=== PATIENT | female | born 1970 ===

== ENCOUNTER 2017-08-07 09:42 | Day surgery (SDC) | payer OTHER, BC ==
[2017-08-06 09:39] VITALS: BMI 29.9
[~2017-08-07 09:42] MED LIST: Bupivacaine HCl 0.5% PF (10 ml) Inj ONE; EPINEPHrine 1 mg/ml (1:1000) Inj ONE; ceFAZolin IV 1 gm in Dextrose 2 GM/100 ML BAG IVPB ONE
[2017-08-07] MEDS ORDERED: Midazolam 2 MG/2 ML VIAL ONE (10:54)
[2017-08-07] MEDS ORDERED: Succinylcholine Chloride 20 mg/ml Syr (5 ml) IV ONE (10:54)
[2017-08-07] MEDS ORDERED: Propofol 10 mg/ml Inj (20 ML) ONE (10:54)
[2017-08-07] MEDS ORDERED: Rocuronium 10 mg/ml (10 ml) ONE (10:54)
[2017-08-07] MEDS ORDERED: Lactated Ringer's 1,000 ML IV ONE ×2 (10:55→12:00)
[2017-08-07] MEDS ORDERED: Dexamethasone 4 mg/1 ml IVP PRN (11:30)
[2017-08-07] MEDS: HYDROmorphone 0.5 mg/0.5 ml ISec IVP PRN ×3 (13:07→13:35)
[2017-08-07] MEDS ORDERED: Bupivacaine HCl 0.5% PF (10 ml) Inj ONE ×2 (14:02)
[2017-08-07] MEDS ORDERED: Lidocaine 2% Inj (20ml) ONE (14:02)
--- NOTE | 2017-08-07 14:32 | PCM.ANESB3 ---
Femoral Nerve Block - Femoral Nerve Block Date of Procedure: 08/07/17 Anesthesiologist: ladan Pre-Procedure Diagnosis: s/p right knee meniscus repair Post-Procedure Diagnosis: same Procedure Performed: Femoral Nerve Block Right - Procedure Femoral Nerve Block: The procedure was explained to the patient that it is for the post-operative pain management. Consent was obtained after a thorough discussion with the patient regarding the benefits and possible complications of local anesthetic block of the femoral nerve at the inguinal crease area. The patient was brought to the operating room and standard monitors were applied. Time-out was held with the circulating nurse to confirm the correct surgery and the appropriate block. After applying oxygen by nasal cannula and administering IV Sedation, patient was placed in supine position with fully extended lower extremities and the _right groin exposed. The femoral artery was then carefully palpated. The ultrasound transducer was then applied to this area in the transverse plane and the femoral nerve was visualized lateral to the femoral artery and underneath the fascia iliaca. After thorough identification, the inguinal crease area was prepped with Betadine solution three times and 1 % Lidocaine was injected subcutaneously for topical anesthesia. At this point, a #22 gauge Stimuplex 2-inch needle was inserted immediately lateral to the femoral artery pulse at the inguinal crease and advanced perpendicularly. The needle was inserted to the ultrasound transducer in-plane towards the femoral nerve in a [id number] direction. Needle advancement was performed carefully under direct ultrasound visualization. Nerve stimulator was used and twitch of the quadriceps muscle was obtained at current of __0.4___ MA. After negative aspiration, __5___cc of __0.5___% __Bupivacaine ____was injected and this was followed with __15____ cc of ___0.5____ % ___ Bupivacaine . Under ultrasound guidance the local anesthetics were observed spreading below fascia iliaca and around the femoral nerve. The needle was removed intact and sterile dressing was applied. The patient had stable vital signs, was conscious and in no apparent distress. The patient tolerated the femoral nerve block well with stable vital signs and was prepared for subsequent surgery.
[2017-08-07 15:44] VITALS: BP 90/60; RESP 18; TEMP 97; O2SAT 100
[2017-08-07 16:08] VITALS: PULSE 70
--- NOTE | 2017-08-12 23:14 | PCM.SURG1 ---
Surgeon's Initial Post Op Note - Surgeon's Notes Surgeon: Duane Rich MD Access Nurse: Belia Ward PA-C Type of Anesthesia: General Endo, [facility] Pre-Operative Diagnosis: Right knee: #1 medial meniscal tear. #2 synovitis. # 3 chondromalacia/ chondral injury Operative Findings: Right knee: #1 medial meniscus tear (complex anterior horn tear not repairable/ complex peripheral red-red zone posterior horn repairable tear). #2 lateral meniscus tear (peripheral posterior horn red-red zone menisco -capsular seperation w/ hypermobility, repairable). #3 chondral injury trochlea (full thickness defect measuring [id number]). #4 symptomatic medial plica band. #5 synovitis. #6 hypertrophic inflamed fat pad Post-Operative Diagnosis: Right knee: #1 medial meniscus tear (complex anterior horn tear not repairable/ complex peripheral red-red zone posterior horn repairable tear). #2 lateral meniscus tear (peripheral posterior horn red- red zone menisco-capsular seperation w/ hypermobility, repairable). #3 chondral injury trochlea (full thickness defect measuring [id number]). #4 symptomatic medial plica band. #5 synovitis. #6 hypertrophic inflamed fat pad Operation Performed: Right knee arthroscopic: #1 all-inside lateral mensical repair. #2 partial medial menisectomy w/ comcominant stabilization posterior horn. #3 microfracture trochlea cartilage defect. #4 extensive synovectomy ( including debridement symptomatic medial plica band, debridement hypertorphic fat pad, extensive synovectomy in all 3 compartments). #5 PRP injection intra- articular Specimen/Specimens Removed: specimen= none. tourniquet time= 0 min. complications= none. implants= Linvatec meniscal repair system, 10 implants for the lateral meniscal repair, 8 implants for the medial meniscus stabilization Estimated Blood Loss: EBL {In ML}: 3 Blood Products Given: N/A Drains Used: No Drains Post-Op Condition: Good Date of Surgery/Procedure: 08/07/17 Time of Surgery/Procedure: 14:00
--- NOTE | 2017-08-17 05:27 | OP ---
PROCEDURE DATE: 08/07/2017 PREOPERATIVE DIAGNOSES: Right knee: 1. Medial meniscal tear. 2. Synovitis. 3. Chondromalacia/chondral injury. POSTOPERATIVE DIAGNOSES: Right knee: 1. Medial meniscal tear (complex anterior horn tear, not repairable/complex peripheral red-red zone posterior horn repairable tear). 2. Lateral meniscal tear (peripheral posterior horn red-red zone meniscal capsular separation with hypermobility, repairable). 3. 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 4. Symptomatic medial plica band. 5. Inflammatory synovitis. 6. Hypertrophic inflamed fat pad. PROCEDURE: 1. Right knee arthroscopic. 2. All-inside lateral meniscal repair. 3. Partial medial meniscectomy with concomitant stabilization of posterior horn. 4. Microfracture trochlear cartilage defect. 5. Extensive synovectomy (including debridement of symptomatic medial plica band, debridement of hypertrophic fat pad, extensive synovectomy in all three compartments). 5. Intraarticular PRP injection. SURGEON: Duane Rich MD PAPER GLUING OPERATOR: Belia Ward PA-C. JUSTIFICATION FOR PAPER GLUING OPERATOR: Belia Ward is a certified physician maintenance assistant, whose skilled surgical service was an absolute necessity for successful completion of the procedure as he provided skilled surgical assistance with positioning of patient, positioning of extremity, management of surgical gramajo, retraction of neurovascular structures, management of arthroscopic equipment, facilitating lateral meniscus all-inside repair, facilitating partial medial meniscectomy and stabilization of medial meniscus done arthroscopically, microfracture of trochlea, extensive synovectomy and debridement of fat pad and medial plica band, PRP injection, wound closure, fitting and placement and postop hinged knee brace. Belia Ward was present for the entire case and was an absolute necessity for successful completion of the procedure. TYPE OF ANESTHESIA: General endotracheal anesthesia with a postop regional nerve block placed by Anesthesia staff in PACU. SPECIMENS: None. TOURNIQUET TIME: 0 minutes. COMPLICATIONS: None. ESTIMATED BLOOD LOSS: 3 mL. DRAINS: None. DISPOSITION: The patient was extubated and transferred to PACU in stable condition, having tolerated the procedure well. IMPLANTS: Linvatec meniscal repair system, with 10 implants for all-inside lateral meniscal repair, 8 implants for medial meniscus stabilization after partial medial meniscectomy. INDICATIONS FOR SURGERY: The patient is a 46-year-old female with no significant past medical history, who presented to the office for the first time under my care on 06/25/2017 with right knee pain since 02/07/2017. This is a workers' comp case with an injury at work to the right knee on 02/07/2017. 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 She developed immediate 10/10 pain localized to the right knee, most prominent at the medial joint line. She had difficulty with ambulation and weightbearing. She had multiple episodes of giving way and almost falling as well as consistent clicking and catching of the right knee. She was referred for an MRI of the right knee done at [facility] on 07/06/2017, which was read as; 1. Horizontal tear within the posterior horn and body of the medial meniscus. 2. Grade 1 sprains of the ACL and MCL. 3. Minimal tricompartmental articular chondrosis including within the medial femoral condyle, posterior nonweightbearing aspect of the lateral femoral condyle and patella. On my review of the MRI, indeed there was a posterior horn medial meniscal tear with some signal change in the anterior horn, there was also signal change in the posterior horn of the lateral meniscus. Her physical examination was consistent for medial and lateral meniscal tears with positive medial and lateral Tamiko's with no evidence of instability. She underwent a cortisone mixture injection in the office on 06/25/2017, resulting in near-complete resolution of her pain immediately in the office. She was also placed in a Neoprene hinged knee brace for support. She was able to return to work in the interim. On her followup in the office two weeks later after obtaining the MRI, she stated that her pain was significantly reduced and improved for a period of one week and she was happy with her progress, but the pain gradually returned and she is now back to her baseline level of 8/10 pain localized to the right knee. After reviewing the MRI with her and taking in mind the amount of time that had passed since the injury with no improvement, she was indicated for arthroscopic surgery. On 07/09/2017, to help with her pain locally, she did undergo a second cortisone mixture injection in the office at her request to help with her pain. That also alleviated her pain temporarily. On her final preoperative followup, her pain had returned to baseline level of 8/10 pain again. She was indicated for right knee arthroscopic medial meniscal repair versus partial meniscectomy, lateral meniscus repair versus partial lateral meniscectomy, extensive synovectomy, chondroplasty versus microfracture, and all related indicated arthroscopic procedures including PRP injection. The risks, benefits, and alternatives of the procedure were discussed at length with the patient, with the risks including but not limited to infection, neurovascular damage, need for further surgery, development of chronic pain and disability, development of blood clots including DVT and PE, failure of repair, chondrolysis and accelerated degenerative wear, anesthesia reactions including . After answering all of her questions, she stated that she understood the risks and wished to proceed with surgery. She was referred to her primary care physician for preoperative medical evaluation and clearance as well as preadmission testing. Procedure was scheduled at [facility] after authorization was obtained from workers' comp. PROCEDURE IN DETAIL: The patient was identified in the preoperative holding area and the right knee was marked for surgery. Once again as described above, the risks, benefits and alternatives of the procedure were discussed at length with the patient and informed consent was obtained. After a brief discussion with the Anesthesia staff, perioperative IV antibiotics in the form of 2 gm Ancef were administered and the patient was taken to the operating room and placed on a well-padded operating room table with all bony prominences and superficial neurovascular structures well padded. An initial time-out was done with the surgeon, Anesthesia staff, OR staff, and all were in agreement with the patient, procedure being done, and extremity being operated on. General anesthesia was administered without any difficulty or complication. Examination under anesthesia was then carried out. EXAMINATION UNDER ANESTHESIA: Right knee with no swelling, no warmth, no erythema, skin intact, full range of motion compared to contralateral knee with consistent crepitance localized to the medial joint line representing the meniscus tear clicking in and out. No evidence of instability with negative anterior drawer, mutual external rotation and internal rotation, negative posterior drawer, negative David, negative reverse David, negative pivot shift, negative reverse pivot shift, negative posterior lateral corner drawer test, negative dial test, negative opening to medial or lateral joint lines at 0 or 30 degrees varus or valgus stress, patella with normal tracking, no evidence of instability, there was a reproducible click representing a symptomatic medial plica band at the inferior medial aspect of the patella throughout range of motion engaging consistently at 30 degrees flexion. CONTINUATION OF PROCEDURE: A tourniquet was placed high on the right thigh, but never inflated. The right lower extremity was prepped and draped in standard sterile fashion. A final time-out was done with the surgeon, Anesthesia staff, OR staff, all in agreement with the patient, procedure being done and extremity being operated on. The knee was insufflated with 50 mL of normal saline. Anterior lateral portal was created with stab incision through the skin, down the subcutaneous tissue, down to the level of the capsule. Blunt arthroscopic trocar and cannula were inserted through the portal into the suprapatellar pouch. The arthroscopic camera was inserted and insufflation with arthroscopic fluid was begun. With the use of spinal needle localization, optimal position for anterior medial portal was selected and stab incision was made through the skin, down to subcutaneous tissue, down to the level of capsule. An accessory cannula was inserted and the knee joint was copiously irrigated for better visualization and removal of debris. With the use of an arthroscopic probe, a diagnostic arthroscopy was then carried out. DIAGNOSTIC ARTHROSCOPY: Attention was first turned towards the suprapatellar pouch, where there was no evidence of adhesions or loose bodies, attention was then turned towards the patellofemoral joint where immediately seen midpoint at the trochlea measuring approximately 2 mm of width and 6 mm in length was a full-thickness cartilage injury down to subchondral bone. This appeared to be traumatic in nature, most likely from a direct impact. The patella was well seated in the trochlea with no evidence of instability and the patella cartilage and the surface did not exhibit any chondral injury. At the inferior medial aspect of the patella extending to the medial retinaculum, was a thick and hypertrophic inflamed symptomatic plica band. Attention was then turned towards the medial gutter, where again seen was the thickened medial plica band. Attention was then turned towards the medial compartment and after careful evaluation with the arthroscopic probe, the medial meniscus exhibited a complex anterior horn tear that did not appear to be amenable to repair. At the posterior horn of the medial meniscus, there was significant hypermobility as a peripheral red-red zone meniscal capsular separation tear. Attention was then turned towards the medial femoral condyle and medial tibial plateau that exhibited intact cartilage with no evidence of injury. Attention was then turned towards the intercondylar notch where intact ACL and PCL were seen. Attention was then turned towards the lateral compartment where intact lateral femoral condyle and lateral tibial plateau cartilage were seen. The lateral tibial plateau cartilage exhibited mild grade 1 chondromalacia throughout with some fibrillation, but no full thickness defect seen. Lateral meniscus after careful evaluation exhibited a complex tear at the posterior horn of the lateral meniscus as well as significant hypermobility and peripheral meniscal capsular separation of the entire posterior horn and lateral meniscus. All along the anterior aspect of the knee joint, along all three compartments was a hypertrophic inflamed synovial lining that appeared to be symptomatic as well as a hypertrophic fat pad that appeared to cause impingement. EXTENSIVE SYNOVECTOMY: All along the anterior aspect of the knee joint and along all three compartments was a hypertrophic inflamed synovial lining that was definitely symptomatic. With the use of the arthroscopic shaver and radiofrequency ablation, an extensive synovectomy was carried out while maintaining good hemostasis, debriding the synovial lining down to good non-inflamed tissue. Attention was then turned towards the hypertrophic fat pad that was causing impingement with significant inflamed and hypertrophic tissue at the infrapatellar fat pad. With the use of arthroscopic shaver and radiofrequency ablation, this was debrided, while maintaining good hemostasis. The symptomatic medial plica band was then resected with the use of arthroscopic shaver and radiofrequency ablation while maintaining good hemostasis as well. Once the extensive synovectomy was carried out to satisfaction, attention was then towards the lateral compartment. ALL-INSIDE LATERAL MENISCUS REPAIR: The lateral meniscus was carefully evaluated and with the use of the probe, it was found to have significant hypermobility as a meniscal capsular separation of the posterior horn. At the posterior lateral corner of the posterior horn, there was a complex tear of the posterior horn as well. With the use of the arthroscopic shaver and radiofrequency ablation, the complex tearing was smoothed out and all unstable meniscal fragments were removed. At that point in time, the decision was made to proceed with an all-inside lateral meniscus arthroscopic repair. With the use of the Linvatec meniscal repair system, 4 implants were placed just anterior to the popliteal hiatus stabilizing and reducing the posterior horn of the lateral meniscus to the posterior lateral corner of the capsule. Four implants were used with good capsular-sided fixation with alternating horizontal and vertical mattress sutures placed. This was repeated with placement of 4 more implants posterior to the popliteal hiatus stabilizing the posterior horn to the posterior capsule with the same technique. We then repeated the steps with placement of 2 implants anterior to the popliteal hiatus at the inferior surface of the lateral meniscus to restore the hoop stressors of the lateral meniscus with good stabilization achieved. The lateral meniscus repair was tested and found to be stable with jewish of normal biomechanical motion and resolution of the hypermobility. With the use of arthroscopic shaver and radiofrequency ablation, a chondroplasty of the lateral tibial plateau cartilage was carried out removing the fibrillated cartilage as well. Attention was then turned towards the medial compartment. ARTHROSCOPIC PARTIAL MEDIAL MENISCECTOMY AND STABILIZATION OF MEDIAL MENISCUS: With the use of the arthroscopic shaver and radiofrequency ablation, a partial medial meniscectomy was carried out of the complex anterior horn tear of the medial meniscus. A smooth contour was established while minimizing the amount of meniscal tissue removed from the medial meniscus. All in all, approximately less than 5 to 10% of the medial meniscal tissue was removed with good joint preservation technique maintained. The posterior horn exhibited a meniscal capsular separation with hypermobility of the posterior horn with ability to sublux the posterior horn beyond the mid point of the medial femoral condyle. With the use of the Linvatec All-Inside Meniscal Repair System, 4 implants were placed at the inferior aspect of the posterior horn with good capsular-sided fixation with alternating horizontal and vertical mattress sutures placed, resulting in good stability and reduction of the posterior horn and medial meniscus to the posterior medial capsule. The steps were then repeated at the superior aspect of the posterior horn and the posterior medial capsule with good stability achieved. With the use of the arthroscopic probe, this was tested and found to be very stable. With the use of the arthroscopic meniscal biters, the partial medial meniscectomy of the anterior horn was completed to satisfaction and good smooth contour was maintained. ARTHROSCOPIC MICROFRACTURE OF TROCHLEA: The full-thickness acute zone of cartilage injury of the trochlea measured 2 mm in diameter and 6 mm in length and was situated at the central aspect of the trochlea. The surrounding cartilage was intact. With the use of arthroscopic curette, a rim of stable cartilage was established and all the unstable overlying cartilage over this full-thickness zone of injury was removed. With the use of the microfracture awl and the powerpick, 3 microfracture holes were placed within the full-thickness zone of injury. This was a successful microfracture with good fat return from the holes. Once the microfracture was successfully completed, final arthroscopic images were taken of the all-inside lateral meniscus repair, the partial medial meniscectomy and concomitant stabilization of the posterior horn of the medial meniscus, microfracture of the trochlear defect, and the extensive synovectomy. All arthroscopic fluid and debris were then removed from the knee joint. PRP INJECTION: With the help of Anesthesia staff, 7 mL of PRP were obtained after a peripheral venous stick was drawn by Anesthesia staff and the kit was then used to spin the blood in the ArthFippex centrifuge. The resulting 7 mL of PRP was and injected under direct visualization arthroscopically intraarticular at the end of the procedure. Arthroscopic camera was then removed and the arthroscopic portals were then reapproximated with 2-0 Vicryl suture for subcutaneous tissue, followed by 3-0 Monocryl suture for skin. Sterile dressings were applied, followed by a layer of sterile cast padding from the toes up to the superior thigh, followed by a layer of compressive Kermit wrap from the toes up to the superior thigh. The knee was then fitted and placed in a postop hinged knee brace, locked in 0 degree extension. RATIONALE FOR CODING AND BILLIN. All-inside medial meniscal repair was conducted successfully and therefore, billed and coded. 2. A partial medial meniscectomy was carried out as the majority of the treatment to the medial meniscus and therefore, partial medial meniscectomy was coded and billed, the stabilization of the posterior horn was secondary to good joint preservation technique, but the partial medial meniscectomy was the majority of the medial meniscus treatment. 3. An arthroscopic microfracture to the full-thickness cartilage injury of the trochlea was conducted and therefore, coded and billed. 4. An extensive synovectomy was carried out including debridement and resection of hypertrophic infrapatellar fat pad causing impingement, resection of the plica band medially, extensive synovectomy in all three compartments of hypertrophic synovial that was inflamed. This was beyond the usual and customary synovectomy for better visualization during arthroscopic surgery and required extended surgical time, and therefore was coded and billed as extensive synovectomy. 5. Chondroplasty of the lateral tibial plateau was carried out, but being that there were other arthroscopic procedures done in the lateral compartment, the chondroplasty was inclusive to the lateral meniscus repair and the extensive synovectomy that are both being billed. Therefore, this was not coded and billed as part of the procedure, but was conducted. 6. PRP injection was placed intra-articularly with the help of Anesthesia staff and therefore, was coded and billed. The PRP injection was done at the conclusion of the surgery under direct arthroscopic visualization. 7. Postop hinged knee brace was fitted and placed for the patient provided by my office. The brace was of medical necessity to protect the lateral meniscus repair and the medial meniscus stabilization to maximize the chances of successful outcome after surgery. The brace was fitted and placed on the patient prior to extubation and was of absolute medical necessity. DISPOSITION: The patient was extubated and transferred to PACU in stable condition, having tolerated the procedure well. She will be discharged home once she has recovered from anesthesia. She is instructed to be weightbearing as tolerated to the right lower extremity as long as the postop hinged knee brace is locked in extension. The brace and the dressings are to be on and clean, dry, and intact at all times. She was given a prescription for Percocet for pain control. She has been given a prescription for Lovenox for DVT prophylaxis, which she will start on postoperative day #1 and inject subcutaneously once daily for 2 weeks. She will contact me directly with any questions or concerns. She will follow up in the office for her first postoperative visit within one week and already has her postoperative appointment set up. Duane Rich MD
== END 2017-08-07 17:21 | disposition home or self-care (01) ==
LOC: C.SDS 09:42
PROVIDERS: ATTEND Student in an Organized Health Care Education/Training Program
DX: S83.231D Complex tear of medial meniscus, current injury, right knee, subsequent encounter (principal); M94.261 Chondromalacia, right knee; M67.861 Other specified disorders of synovium, right knee; M65.9 Synovitis and tenosynovitis, unspecified
CPT/HCPCS: 29876; 29881; C1751; J0690; J1170; J2001; J2250; J2405; J2704; J3010; J7120

== ENCOUNTER 2018-08-13 06:02 | Day surgery (SDC) | payer OTHER, BC ==
[2018-08-11 09:48] VITALS: BMI 30.9
[2018-08-13] MEDS ORDERED: EPINEPHrine- 1.5 MG in Sodium Chloride 0.9% Irrig 3,000 ML IR ONE (07:45)
[2018-08-13] MEDS ORDERED: Midazolam 2 MG/2 ML VIAL ONE (07:45)
[2018-08-13] MEDS ORDERED: Propofol 10 mg/ml Inj (20 ML) ONE (07:45)
[2018-08-13] MEDS ORDERED: ceFAZolin 1 gm in NS 2 GM/200 ML BAG IVPB ONE (07:57)
[2018-08-13] MEDS ORDERED: Lidocaine Hydrochloride 5 ML INJ ONE ×2 (08:02→13:26)
[2018-08-13] MEDS ORDERED: Succinylcholine Chloride 20 mg/ml Syr (5 ml) IV ONE (08:02)
[2018-08-13] MEDS ORDERED: Rocuronium 10 mg/ml (5 ml) ONE (08:02)
[2018-08-13] MEDS ORDERED: EPINEPHrine- 1.5 MG in Sodium Chloride 0.9% Irrig 3,000 ML IV ONE (08:15)
[2018-08-13] MEDS ORDERED: Neostigmine 1:1000 (1 mg/ml) Inj ONE (09:09)
[2018-08-13] MEDS ORDERED: Lactated Ringer's 1,000 ML IV ONE (11:16)
[2018-08-13] MEDS: HYDROmorphone 0.5 mg/0.5 ml ISec IVP PRN ×4 (11:25→13:25)
[2018-08-13] MEDS ORDERED: Lactated Ringer's 1,000 ML IV SCH (11:30)
[2018-08-13] MEDS ORDERED: Ropivacaine 0.5% PF (20 ml) inj INJ ONE (13:18)
--- NOTE | 2018-08-13 13:58 | PCM.ANESB7 ---
Adductor Canal Block - Adductor Canal Block Date of Procedure: 08/13/18 Anesthiologist: Gerald Pre-Procedure Diagnosis: right knee meniscus repair Post-Procedure Diagnosis: right knee meniscus repair Procedure Performed: Adductor Canal Block Right - Procedure Adductor Canal Block: The procedure was explained to the patient that it is for the post-operative pain management. Consent was obtained after a thorough discussion with the patient regarding the benefits and possible complications of local anesthetic adductor canal block of the femoral nerve. Standard monitors, as defined by the ASA, were applied to the patient. Time-out was held with the circulating nurse to confirm the appropriate block. After applying supplemental oxygen and administering IV Sedation as needed, the patient was placed in supine position with and the operative leg was flexed slightly at the knee and externally rotated as needed, and was kept anatomically stable. The mid-thigh of the __right lower extremity was exposed. The ultrasound transducer was then applied transversely along the medial aspect, about midway down the thigh and the femoral artery and vein were identified in appropriate relation with the sartorius muscle. At this time, the femoral nerve was visualized lateral to the femoral artery within the canal. After thorough identification, this area area was prepped with Chloroprep solution three times and 1 % Lidocaine was injected subcutaneously for topical anesthesia. At this point, a #22 gauge Stimuplex 4-inch needle was inserted in-plane in a [id number] orientation, and advanced toward the femoral nerve. Advancement was performed carefully under direct ultrasound visualization. Nerve stimulator was used and appropriate muscle twitch was obtained at current of __0.5___MA. After negative aspiration, __5___cc of __0.5___% ___Ropivacaine was injected and this was followed with ___15___ cc of __0.5 % ___Ropivacaine . Under ultrasound guidance the local anesthetics were observed spreading around the femoral nerve. The needle was removed intact and sterile dressing was applied. The patient had stable vital signs, was conscious and in no apparent distress. The patient tolerated the femoral nerve block well with stable vital signs and was prepared for subsequent surgery
[2018-08-13 14:51] VITALS: BP 110/70; RESP 18; TEMP 97; O2SAT 100
[2018-08-13 16:57] VITALS: PULSE 63
--- NOTE | 2018-08-14 00:55 | PCM.SURG1 ---
Surgeon's Initial Post Op Note - Surgeon's Notes Surgeon: Duaen Rich MD [employer]: Belia Ward PA-C Type of Anesthesia: General Endo, [facility] Pre-Operative Diagnosis: RIGHT knee: #1 recurrent, acute/reinjury medial meniscal tear. #2 partial ACL tear (grade 2-3). 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 #4 MCL partial tear. #5 synovitis. #6 status post arthroscopic all inside lateral meniscal repair, partial medial meniscectomy with concomitant stabilization posterior horn/repair, microfracture trochlear Central chondral defect, extensive synovectomy (including debridement of symptomatic medial plica bands, debridement of hypertrophic fat pad causing anterior impingement, extensive synovectomy all 3 compartments), intra-articular PRP injection at [facility] on 08/07/17 Operative Findings: RIGHT knee: 1- recurrent, acute/reinjury medial meniscal tear (2 zones of injury = #1 posterior horn intrasubstance complex tearing multidirectional with central defect and poor quality meniscal tissue extending to superior and inferior articular surface, not repairable, #2 anterior horn complex superior surface tearing, not repairable). 2- recurrent/acute injury- lateral meniscal tear (2 zones of injury = #1 complex free edge tearing starting at posterior mid body extending to posterior horn, white-white zone, not rep airable, #2 posterior horn large peripheral red-red zone tear/meniscal capsular separation starting just anterior to popliteal hiatus and extending anterior to the junction with mid body, repairable). partial healing from previous lateral meniscal repair posterior horn with evidence of subsequent secondary injury/recurrent injury. 3- partial ACL tear (With complete avulsion anterior medial bundle from proximal attachment at lateral femoral condyle, good-quality remnant campo ACL tissue, amenable to primary repair, resulting grade 2-3 instability overall, testing for isolated AM bundle shows grade 3 instability = anterior receiving and processing supervisor neutral/external rotation without endpoint, anterior drawer test in internal rotation 2+ with firm endpoint, isolated testing of PL bundle shows grade 1-[address] bundle is intact). 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 5- MCL partial tear (grade 1-2 instability, firm endpoint). 6- foreign body present (suture from previous meniscal repair at posterior horn lateral meniscus and posterior horn medial meniscus). 7- adhesions/scar tissue most prominent at suprapatellar pouch, but also present at medial and lateral gutter, bands of scar tissue extending from patella to retinaculum medially and laterally similar to plica. 8- hypertrophy and inflammation anterior fat pad (causing anterior and patellofemoral impingement). 9-articular cartilage overgrowth stemming from medial aspect of lateral femoral condyle extending into intercondylar notch (possible reactive response to trauma versus overgrowth from previous microfracture). 10- s/p arthroscopic all inside lateral meniscal repair, partial medial meniscectomy with concomitant stabilization posterior horn/repair, microfracture trochlear Central chondral defect, extensive synovectomy (including debridement of symptomatic medial plica bands, debridement of hypertrophic fat pad causing anterior impingement, extensive synovectomy all 3 compartments), intra-articular PRP injection at [facility] on 08/07/[address] Rich Post-Operative Diagnosis: RIGHT knee: 1- recurrent, acute/reinjury medial meniscal tear (2 zones of injury = #1 posterior horn intrasubstance complex tearing multidirectional with central defect and poor quality meniscal tissue extending to superior and inferior articular surface, not repairable, #2 anterior horn complex superior surface tearing, not repairable). 2- recurrent/acute injury-lateral meniscal tear (2 zones of injury = #1 complex free edge tearing starting at posterior mid body extending to posterior horn, white-white zone, not repairable, #2 posterior horn large peripheral red-red zone tear/meniscal capsular separation starting just anterior to popliteal hiatus and extending anterior to the junction with mid body, repairable). partial healing from previous lateral meniscal repair posterior horn with evidence of subsequent secondary injury/recurrent injury. 3- partial ACL tear (With complete avulsion anterior medial bundle from proximal attachment at lateral femoral condyle, good-quality remnant campo ACL tissue, amenable to primary repair, resulting grade 2-3 instability overall, testing for isolated AM bundle shows grade 3 instability = anterior receiving and processing supervisor neutral/external rotation without endpoint, anterior drawer test in internal rotation 2+ with firm endpoint, isolated testing of PL bundle shows grade 1-[address] bundle is intact). 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 5- MCL partial tear (grade 1-2 instability, firm endpoint). 6- foreign body present (suture from previous meniscal repair at posterior horn l ateral meniscus and posterior horn medial meniscus). 7- adhesions/scar tissue most prominent at suprapatellar pouch, but also present at medial and lateral gutter, bands of scar tissue extending from patella to retinaculum medially and laterally similar to plica. 8- hypertrophy and inflammation anterior fat pad (causing anterior and patellofemoral impingement). 9-articular cartilage overgrowth stemming from medial aspect of lateral femoral condyle articular surface extending into intercondylar notch (possible reactive response to trauma versus overgrowth from previous microfracture). 10- s/p arthroscopic all inside lateral meniscal repair, partial medial meniscectomy with concomitant stabilization posterior horn/repair, microfracture trochlear Central chondral defect, extensive synovectomy (including debridement of symptomatic medial plica bands, debridement of hypertrophic fat pad causing anterior impingement, extensive synovectomy all 3 compartments), intra-articular PRP injection at [facility] on 08/07/[address] Rich Operation Performed: RIGHT knee arthroscopic: #1 primary ACL repair (anterior- medial bundle). #2 lateral meniscus repair. #3 partial medial meniscectomy. #4 chondroplasty MFC and medial tibial plateau chondromalacia. 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 #6 chondroplasty and debridement LFC articular cartilage overgrowth. #7 removal of foreign bodies (suture from previous lateral and medial meniscal repairs done 08/07/17). #8 extensive synovectomy (including lysis of adhesions suprapatellar pouch, resection plica bands/scar tissue medial and lateral, resection and debridement of hypertrophic/inflamed anterior fat pad, synovectomy all 3 compartments). #9 evaluation of MCL partial tear. #10 evaluation of LCL partial tear. #11 intra-articular PRP injection Specimen/Specimens Removed: specimen = foreign bodies/suture from previous medial and lateral meniscal repairs, LFC chondral overgrowth sent to pathology. Tourniquet time = 0 min. Complications = none. implants =. #1 [facility]: Sequent all inside meniscal repair system, 8 implants used for LMR (2 kits open). #2 Arthrex: 4.75 mm bio composite swivel lock anchor x1, FiberWire suture (combination of 2. 0 suture #2 cinch FiberWire suture used), for ACL repair Estimated Blood Loss: EBL {In ML}: 3 Blood Products Given: N/A Drains Used: No Drains Post-Op Condition: Good Date of Surgery/Procedure: 08/13/18 Time of Surgery/Procedure: 11:00
--- NOTE | 2018-08-15 01:35 | OP ---
PROCEDURE DATE: 08/13/2018 PREOPERATIVE DIAGNOSES: Right knee, 1. Recurrent, acute/re-injury medial meniscal tear. 2. Partial anterior cruciate ligament tear (grade 2 to 3). 3. Chondromalacia (history of full-thickness chondral defect of the central trochlea, status post microfracture, 08/07/2017. 4. Medial collateral ligament partial tear. 5. Synovitis. 6. Status post arthroscopic all-inside medial meniscal repair, partial medial meniscectomy with concomitant stabilization, posterior horn/repair, microfracture central trochlear full thickness chondral defect, extensive synovectomy including debridement of symptomatic medial plica bands, debridement of hypertrophic fat pad causing anterior impingement, extensive synovectomy in all three compartments, intraarticular PRP injection at [facility] on 08/07/2017. POSTOPERATIVE DIAGNOSES: Right knee, 1. Recurrent, acute/re-injury medial meniscal tear (two zones of injury = Posterior horn intrasubstance complex tearing multidirectional with central defect and poor quality meniscal tissue extending to superior and inferior articular surface, not repairable. Anterior horn complex superior surface tearing, nonrepairable). 2. Recurrent/acute injury lateral meniscal tear (two zones of injury = complex free edge tearing starting at posterior mid body extending to posterior horn, white-white zone not repairable; posterior horn large peripheral red-red zone tear/meniscocapsular separation staring just anterior to the popliteal hiatus and extending anterior to the junction of posterior horn with mid body, repairable), partial healing from previous lateral meniscal repair posterior horn with evidence of subsequent secondary injury/recurrent injury. 3. Partial anterior cruciate ligament tear (complete avulsion anterior medial bundle from proximal attachment at lateral femoral condyle, good quality remnant in either anterior cruciate ligament tissue amenable to primary repair, resulting in grade 2 to 3 instability overall, testing for isolated anterior medial bundle shows grade 3 instability = anterior extension service specialist in charge neural/external rotation without implant, anterior drawer internal rotation with 2+ grade instability with a firm implant, isolated testing of the posterior lateral bundle showed grade 1 to 2 instability as the posterior lateral bundle is intact). 4. Chondromalacia trochlea (history of full-thickness chondral defect at central trochlear, status post microfracture, 08/07/2017, trochlear defect healed with good fibrocartilage formation and some overgrowth), medial femoral condyle and medial tibial plateau (focal areas of grade 2 to 3 chondromalacia with no full-thickness chondral defect seen). 5. Medial collateral ligament partial tear (grade 1 to 2 instability with a firm endpoint). 6. Foreign body present (sutured from previous meniscal repair at posterior horn lateral meniscus and posterior horn medial meniscus). 7. Adhesions/scar tissue, most prominent at suprapatellar pouch, but also present in medial and lateral gutters as bands of scar tissues extending from patellar to medial and lateral retinaculum, similar to plica bands. 8. Hypertrophy and inflammation anterior fat pad, causing anterior and patellofemoral impingement. 9. Articular cartilage overgrowth extending from medial aspect of lateral femoral condyle, articular surface, extending into intercondylar notch (possible reactive response to trauma versus overgrowth from previous microfracture). 10. Status post arthroscopic All-inside lateral meniscal repair, partial medial meniscectomy with concomitant stabilization posterior horn/repair, microfracture trochlear central chondral defect, extensive synovectomy (including the debridement of symptomatic medial plica band, debridement of hypertrophic fat pad causing anterior impingement, extensive synovectomy in all three compartments), intraarticular PRP injections at [facility] on 08/07/[address] Rich. PROCEDURES: Right knee arthroscopic, 1. Primary anterior cruciate ligament repair (anterior and medial bundle repair). 2. Lateral meniscus repair. 3. Partial medial meniscectomy. 4. Chondroplasty medial femoral condyle and medial tibial plateau. 5. Chondroplasty trochlear fibrocartilage overgrowth, status post arthroscopic microfracture, 08/07/2017. 6. Chondroplasty and debridement lateral femoral condyle articular cartilage overgrowth. 7. Removal of foreign bodies (suture from previous lateral and medial meniscal repairs done on 08/07/2017). 8. Extensive synovectomy (including lysis of adhesions, suprapatellar pouch, resection of plica bands or scar tissue from medial and lateral gutters and retinaculum, resection and debridement of hypertrophic/inflamed anterior fat pads, synovectomy in all three compartments). 9. Evaluation of medial collateral ligament partial tear under anesthesia. 10. Evaluation of lateral collateral ligament partial tear under anesthesia. 11. Intraarticular PRP injection. SPECIMEN: Foreign bodies/suture from previous medial and lateral meniscal repairs, lateral femoral condyle chondral overgrowth sent to pathology. TOURNIQUET TIME: Zero minutes. COMPLICATIONS: None. DRAINS: None. IMPLANTS: 1. Linvatec: Sequent All-Inside Meniscal Repair System, 8 implants used for lateral meniscus repair (two kits open). 2. Arthrex: 4.75 mm BioComposite SwiveLock anchor x1, FiberWire suture (combination of #2 FiberWire suture and #2 cinch FiberWire suture used) for ACL repair. ESTIMATED BLOOD LOSS: 3 mL. DISPOSITION: The patient was extubated and transferred to PACU in stable condition, having tolerated the procedure well. INDICATIONS FOR SURGERY: The patient is a 48-year-old female with no significant past medical history who has been under my care since 06/25/2017 with right knee pain and dysfunction since 02/07/2017. This is a workmen's comp case with an injury at work to the right knee with date of injury, 02/07/2017. Prior to this date of injury on 02/07/2017, this patient denies having any right knee issue, and there was no evidence of chronic injury or pathology. 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 She developed immediate 10/10 pain localized to the right knee, most prominent at the medial joint line. She had difficulty with ambulation and weightbearing. She had multiple episodes of giving away and almost falling as well as consistent clicking and catching localized to the right knee. Finally, her workmen's comp case was opened, and after there was no significant improvement with rest and observation, she presented to my office for the first time on 06/25/2017. Her physical examination was consistent for medial and lateral meniscal tears with positive medial and lateral Tamiko with no significant evidence of instability at that point in time. She also had significant quad atrophy already compared to contralateral knee. We started her treatment with conservative treatment in the form of cortisone mixture injection in the office on 06/25/2017 which resulted in near complete resolution of her pain immediately in the office. She was stabilized and placed in a Neoprene hinged knee brace for support and preliminary conservative treatment for her injury. She was referred to start physical therapy and antiinflammatory medical and cream. She was referred for an MRI of the right knee done at [facility] on 07/06/2017, which was read as, 1. Horizontal tear within the posterior horn and body of the medial meniscus. 2. Grade 1 sprains of ACL and MCL. 3. Minimal tricompartmental articular chondrosis. On my review of the MRI, indeed there was a posterior horn medial meniscal tear with some signal change in the anterior horn, there was also significant signal change within the posterior horn of the lateral meniscus in the periphery. She followed up 2 weeks later and the pain had returned back to baseline level of pain and dysfunction with difficulty performing ADLs and a significant negative impact on her quality of life on 07/09/2017. She underwent her second cortisone mixture injection on 07/09/2017 after we reviewed the MRI and confirmed that there was no intraarticular mechanical problem that would warrant urgent surgery and that we would try conservative treatment again. The injection did provide her with near complete resolution of pain, the second time around that only lasted one week again. The pain returned to baseline level of pain and dysfunction, and after speaking to the patient on the phone, we agreed that she was indicated for a right knee arthroscopic surgery including arthroscopic medial meniscal repair versus partial meniscectomy, possible lateral meniscus repair versus possible lateral meniscectomy, extensive synovectomy, chondroplasty versus microfracture, and all related indicated arthroscopic procedures. We obtained authorization from the workmen's comp career at [facility], and she underwent the procedure on 08/07/2017 at [facility] with no complications, and she tolerated the procedure well. She was recovering over the next few weeks, compliant with all postop recommendations including physical therapy 4 to 5 times a week, postop hinged knee brace used, locked at 0 degree extension at all times when ambulating, focusing on regaining range of motion with home exercise program as well as physical therapy, DVT prophylaxis and minimizing pain medication. Approximately 4 weeks after surgery about 08/07/2017, the patient reports that she fell down a flight of stairs in her building approximately 15 steps in total. She fell down the entire flight. She landed on her right knee with this resulting in return to baseline level of 9/10 right knee pain localized to the medial joint line and proximal medial plateau as well as the patella. She stated that she was wearing the postop hinged knee brace, locked at 0-degree extension when this happened, and was very thankful that the injury was not worse. Initial evaluation in the office on 09/22/2017, the knee was very swollen and indeed there was ecchymosis. She was referred for a stat MRI of the right knee to rule out stress fracture, and she was instructed to hold physical therapy for a week and be strict manual weightbearing to the right lower extremity with the brace on at all times. The MRI was done at [facility] on 07/25/2017 which was read as, 1. Superficial bone contusion, anterior aspect of patella without fracture. No extensor mechanism tear. 2. Grade 2 sprain of ACL and MCL, increased since previous study. 3. No evidence for a medial meniscal repair. 4. Soft tissue swelling and edema throughout the knee with a mild to moderate joint effusion. This MRI was done as a regular MRI without arthrogram. We continued with conservative treatment, and she did return to physical therapy regaining strength and range of motion. The contusion/low-grade stress injury was to the patella, so therefore, she was able to fully weight bear as tolerated. On 09/29/2017, to help facilitate decreasing her pain without causing further injury or decreased hearing to the meniscus repair that has been done just 2 months earlier, we did an aspiration of the knee without injection; 30 mL of bloody fluid were aspirated successfully and it did provide her with some pain relief and improved range of motion. She continued to have significant pain although it did modestly improve. Over the course of the next 9 months, she underwent cortisone mixture injection under my care on 10/27/2017, 12/01/2017, and 03/23/2018, as well as 05/03/2018. She had also been referred to pain management, Dr. Eldon Salas, who did a regional genicular nerve block in 10/2017 and repeated it again in the next few months around 01/2018. With the degree of pain that she was in, localized to the right knee despite the patella healing, we began to question the possibility of a lumbar spine contribution/radiculopathy as she did report lower back pain that radiated to the right lower extremity as well. She was referred for an MRI of the lumbar spine done at [facility] on 04/07/2018 which was read as, 1. L1-L2 through L3-L4, no focal disk herniation, significant central canal or neuroforaminal stenosis. 2. L4-L5 disk bulge causing mild central stenosis. No focal herniation. Bulge and facet hypertrophy, mild to moderate bilateral foraminal stenosis. 3. L5-S1 disk bulge without focal herniation. Bulge and facet hypertrophy, mild bilateral foraminal stenosis. After reviewing the lumbar spine MRI with her, she was referred back to painting department supervisor, Dr. Eldon Salas, who did perform lumbar spine injection, and she did report some improvement, although only about 20% to 30% after the lumbar spine injection with Dr. Salas. By 04/2018, it became clear that despite best efforts with compliance and obtaining a custom medial offloaded brace as well as working diligently with physical therapy and home exercise program, she just was not able to overcome the secondary injury from the fall, and had significant localized right knee pain that significantly improved with local cortisone injections performed on the dates described above, that would last only 2 to 3 weeks at the most and return back to baseline level of pain and dysfunction after that point. She became very frustrated and the thought of having another surgery was overwhelming. Throughout the postop course, she was not able to return to work as her job as a surgical training specialist requires her to return to work full duty with no restrictions, and she would not be allowed to wear to a custom ACL brace. We did attempt return to work, and unfortunately, with the movement of the train and her position of standing while conducting the train, it was nearly impossible for her to do safely. Finally, on 05/03/2018 visit, Mr. Loving agreed to undergo an MR arthrogram which would provide better detail in the setting of a knee MRI after arthroscopic surgery. The MR arthrogram was done at [facility] on 06/07/2018 that was read as, 1. Complex tear posterior horn and body of lateral meniscus. 2. Re-demonstration of grade 2 sprains of ACL and of the MCL. 3. Grade 1 sprain, fibular collateral ligament. 4. Mild to moderate tricompartmental articular chondrosis, most pronounced in the patella. On my review of the MRI, there was definitely, significant signal change localized to the posterior horn of the medial meniscus with what appeared to be a defect at the posterior horn with the intraarticular contrast filling the defect clearly on the MRI. This was concerning as based off of the interpretation of the MRI, it does not appear repairable. The lateral meniscus exhibited signal change at the posterior horn as well in the same zone of injury witnessed during arthroscopy on 08/07/2017 just anterior to the popliteal hiatus with visible scaring and potential partial healing of the lateral meniscus at the very least. Focusing on the trochlear lesion from 08/07/2017 that underwent the microfracture, the trochlear chondral defect was not visible on MRI, making it likely that the microfracture was successful in filling of the defect. The ACL exhibited significant signal change throughout its course with what appeared to be attenuated fibers. The anterior medial bundle had a more pronounced injury with what appeared to be a complete avulsion from the proximal insertion at the lateral femoral condyle as the contrast from the MR arthrogram can be seen entering and going between the proximal aspect of the anterior medial bundle and the wall of the lateral femoral condyle where normally the insertion would be intact. The posterior lateral bundle exhibited intact fibers throughout its course with some signal change and attenuation but more importantly the proximal attachment was intact at the insertion and appeared to be adherent to the lateral femoral condyle. On her followup visit on 06/10/2018, we reviewed the MRI findings at length and discussed our treatment options. At this point in time, the ACL anterior medial fiber partial tear appeared to have good quality tissue, that in my opinion was a good candidate for an ACL primary repair done arthroscopically. As stated before, she could not return to work with a brace on and did not want to change her job position, and wanted to her continue her passion of being a surgical training specialist, and therefore, she was indicated for surgery. She was indicated for right knee arthroscopy, evaluation of ACL tear and possible primary repair ACL, medial meniscal repair versus partial medial meniscectomy, lateral meniscal repair versus partial lateral meniscectomy, evaluation of chondral injury, and resulting fibrocartilage development from microfracture done 08/07/2017, extensive synovectomy, evaluation of MCL and LCL under anesthesia, and all related indicated arthroscopic procedures as well as chondroplasty/microfracture if indicated. We discussed our treatment plan at length and Ms. Loving was given all of our options to treat the ACL partial tear. If the fibers indeed appear to be intact and the instability was more of attenuation and stretching out of anterior medial bundle, then the primary repair would be carried out with the intention of tightening of the fibers, and reattaching them to the lateral femoral condyle at the [place] insertion point. If the anterior medial bundle was completely detached as we would expect, a primary repair would be carried out as long as there was good quality remnant [place] tissue present. If the quality of the anterior medial bundle tear tissue was very poor, we discussed potentially performing an ACL reconstruction with allograft which Ms. Loving did not want to do unless it was 100% the only solution. We discussed other options such was internal bracing and single bundle reconstruction which finally she had agreed to if it indeed was indicated but all efforts would be made to confirm a primary ACL repair as it would have the quickest recovery for her with her intention of returning to work as soon as possible. We then discussed the most likely treatment for the medial meniscus, with most likely at this point be a partial medial meniscectomy with the large posterior horn tissue defect, but all attempts would be made at joint preservation and repairing the meniscal tissue as much as possible. We reviewed surgical animation videos and diagnosis animation videos as well as the MRI at length and her previous surgery images, and she stated that she had a good understanding of the procedure proposed to her as well as the diagnosis. The risks, benefits and alternatives of the procedure were discussed at length with the patient with the risks including, but not limited to infection, neurovascular damage, need for further surgery, failure of repair, chondrolysis, iatrogenic injury, loss of function, development of chronic pain and disability, development of blood clots including DVT and PE, anesthesia reactions including , stiffness, need for further surgery. After answering all of her questions, she stated that she understood the risk and wished to proceed with surgery. Physical therapy was set up to start immediately postop at a minimum of 4 days per week. She was referred to a primary care doctor for preadmission testing and preoperative medical evaluation and clearance which was obtained successfully without any issues. Arrangements were made with painting department supervisor, Dr. Salas, to help start her treatment postoperatively and provide us with the option of a region nerve block if on evaluation, her pain was not well controlled. We also discussed how we would be more cautious postoperatively to avoid another fall and agreement was made to take all precautions as necessary, indeed a walker, as well as get physical assistance from her or family whenever going up and down the stairs and to work with physical therapy on crutch ambulation going up and down stairs preop. I also believe that her recovery at this time around is going to be a little bit easier for her as this time, she is not as deconditioned as she was prior to the first surgery. She has done a great job, working with physical therapy and regaining her quad strength and general core strength overall, I believe that she is in a better place overall physically when compared to the first surgery and that she is mentally ready and knows what to expect, and I believe, she will have a better outcome at this time around. I believe that again, causality is established between the injury at work on 02/07/2017, and her right knee presentation initially which then led to a second injury while going down the stairs on approximately resulting in recurrent injury and indication for another surgery, nearly 9 months later. The reason that we awaited such a long time was two fold. First half, Ms. Loving was very committed to conservative treatments and was making great progress with physical therapy and pain management, it was when she plateaued and it became evident that no further significant improvement in her presentation was occurring that we repeated the MRIs and MR arthrogram and indicated her for the second surgery. [employer] Work[employer] provided us with the approval, and surgery was scheduled on 08/13/2018 at [facility]. PROCEDURE IN DETAIL: Once the operative report is loaded into [employer], I will edit the report and add the procedure details as well as disposition. Duane Rich MD
== END 2018-08-13 17:12 | disposition home or self-care (01) ==
LOC: C.SDS 06:02
PROVIDERS: ATTEND Student in an Organized Health Care Education/Training Program
DX: S83.511A Sprain of anterior cruciate ligament of right knee, initial encounter (principal); S83.231A Complex tear of medial meniscus, current injury, right knee, initial encounter; M94.261 Chondromalacia, right knee; M94.262 Chondromalacia, left knee; M67.862 Other specified disorders of synovium, left knee; S83.232A Complex tear of medial meniscus, current injury, left knee, initial encounter; S83.512A Sprain of anterior cruciate ligament of left knee, initial encounter; M48.061 Spinal stenosis, lumbar region without neurogenic claudication
CPT/HCPCS: 29874; 29880; 29888; C1713; J0690; J1170; J2250; J2704; J2710; J3010; J7120